=== PATIENT | male | born 1935 | race Caucasian/White ===

== ENCOUNTER 2017-09-03 08:17 | Emergency (ER) | payer MEDICARE, BC ==
[~2017-09-03] VITALS: Ht 177.8 cm; Wt 88.0 kg
[~2017-09-03 08:17] MED LIST: ATOR80TA PO; CHOL2000 PO; CLOP75TA35 PO; CYAN1TAB41 PO; MAGN400C PO; METO-395 PO; OMEG500C PO; ORPH100T2 PO; ZES10T PO; ZET10T PO
[2017-09-03 10:08] VITALS: BP 140/71
== END 2017-09-03 10:10 | disposition home or self-care (01) ==
LOC: ER 08:18
DX: M79.644 Pain in right finger(s) (principal); E78.00 Pure hypercholesterolemia, unspecified; Z98.890 Other specified postprocedural states; Z88.0 Allergy status to penicillin; Z79.899 Other long term (current) drug therapy
CPT/HCPCS: 29125; 73130; 99284